=== PATIENT | female | born 2000 | race African-American/Black ===

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

== ENCOUNTER 2021-12-13 17:12 | Emergency (ER) | payer MEDICAID ==
[~2021-12-13] VITALS: Ht 167.6 cm; Wt 62.8 kg
[2021-12-13 17:27] VITALS: BP 136/94
--- NOTE | 2021-12-13 17:30 | NUR ---
21YR OLD FEMALE BIB SELF C/O N/V . PT IS 11 WEEKS PREG. DENIES ANY PAIN . DENIES ANY VAG BLEED. POSITIVE HEART TONES. FIRST PREG FOR PATIENT. 22G IV CATH PLACED R AC. NKDA NO MED HX
[2021-12-13] MEDS ORDERED: DOPPLER MC ONE (17:34)
[2021-12-13] MEDS ORDERED: NACL 0.9% 1,000 ML IV ONE (17:35)
[2021-12-13] MEDS ORDERED: PROMETHAZINE 25 MG/ML VIAL IVP ONE (17:35)
--- NOTE | 2021-12-13 17:50 | NUR ---
22G IV CATH PLACED IN R AC
[2021-12-13 17:59] LABS: BASOPHILS % (AUTO) 0.3 % (0.0-2.0); EOSINOPHILS # (AUTO) 0.2 K/uL (0-0.4); EOSINOPHILS % (AUTO) 3.9 % (0.0-4.0); HEMATOCRIT 43.6 % (36-48); HEMOGLOBIN 14.3 g/dL (12.0-16.0); LYMPHOCYTES # (AUTO) 0.6 K/uL (2.5-16.5); LYMPHOCYTES % (AUTO) 15.5 % (20.5-51.1); MEAN CORPUSCULAR HEMOGLOBIN 26 pg (27-31); MEAN CORPUSCULAR HGB CONC 33 g/dL (33-37); MONOCYTES # (AUTO) 0.9 K/uL (0.8-1.0); MONOCYTES % (AUTO) 22.7 % (1.7-9.3); NEUTROPHILS # (AUTO) 2.3 K/uL (1.8-7.7); NEUTROPHILS % (AUTO) 57.6 % (42.2-75.2); PLATELET COUNT (AUTO) 240 K/uL (140-450); RED BLOOD CELL COUNT(AUTO) 5.59 MIL/uL (4.20-5.40); RED CELL DISTRIBUTION WIDTH 13.3 % (11.6-13.7); WHITE BLOOD COUNT (AUTO) 4.1 K/uL (4.5-11.0)
[2021-12-13 18:16] LABS: ALBUMIN 4.1 g/dL (3.4-5.0); ANION GAP 10.9 (8-16); CREATININE 0.7 mg/dL (0.6-1.3); POTASSIUM 3.9 mmol/L (3.5-5.1); TOTAL BILIRUBIN 0.6 mg/dL (0.0-1.0)
[2021-12-13 18:16] LABS: APPEARANCE,URINE CLEAR (CLEAR); BILIRUBIN,URINE NEGATIVE (NEGATIVE); BLOOD, URINE NEGATIVE (NEGATIVE); COLOR,URINE YELLOW (YELLOW); LEUKOCYTE ESTERASE ,URINE NEGATIVE (NEGATIVE); NITRITE, URINE NEGATIVE (NEGATIVE); PH,URINE 6.5 (5.0-9.0); UGLUCOSE NEGATIVE (NEGATIVE)
[2021-12-13] MEDS ORDERED: ONDA8TAB87 PO (18:20)
--- NOTE | 2021-12-13 19:00 | NUR ---
DC PENDING AFTER BOLUS. PT IS RESTING RESP EVEN AND UNLABORED.
--- NOTE | 2021-12-13 19:19 | NUR ---
REPORT GIVEN TO NELLY ZULUAGA
[2021-12-13 20:01] VITALS: BP 136/94
== END 2021-12-13 19:55 | disposition home or self-care (01) ==
LOC: MED 17:12
DX: O21.8 Other vomiting complicating pregnancy (principal); Z3A.11 11 weeks gestation of pregnancy; Z79.899 Other long term (current) drug therapy
CPT/HCPCS: 36415; 80053; 81003; 81025; 83690; 85025; 96361; 96374; 99283; J2550; J7030